=== PATIENT | female | born 1970 | race Caucasian/White ===

== ENCOUNTER 2020-08-20 18:51 | Inpatient (IN) | payer OTHER ==
[~2020-08-20 18:51] MED LIST: ADMELOG100 UNIT/1 SC; ASPIRIN EC81 MG PO; BACTRIM DS TAB1 EACH PO; BASAGLAR K100 UNIT/1 SC; CEFDINIR300 MG PO; MOTRIN600 MG PO; NEURONTIN300 MG PO; ONDANSETRON HCL4 MG PO; OXY-IR 5MG5 MG PO; PHENERGAN12.5 M1 PO; PHENERGAN25 M1 PO; POTASSIUM CHLO10 ME1 PO; PROMETHEGA12.5 MG/SU PR; PROTONIX 40MG T40 MG PO; PROZAC40 MG PO; REGLAN5 MG PO; ZOFRAN4 MG SL
[2020-08-20 20:59] LABS: BUN/CREAT RATIO (CALC) 40.3 RATIO; CREATININE 1.96 mg/dL (0.51-0.95); POTASSIUM 2.7 mmol/L (3.5-5.1)
[2020-08-20 21:13] LABS: BASOPHIL 0.1 % (0-2); EOSINOPHIL 0.7 % (0-5); HGB 16.1 g/dl (12.5-16.0); MCH 30.6 pg (25.0-31.0); MCHC 36.6 g/dL (32.0-36.0); MCV 83.7 fL (78.0-100.0); MONOCYTE 9.9 % (0-12); MPV 10.7 fL (6.0-9.5); NEUTROPHIL 69.9 % (41-80); NRBC 0; PLT 451 K/uL (150-400); RBC 5.26 M/uL (4.20-5.40); RDW 13.3 % (11.5-14.0); WBC 13.6 K/uL (4.0-10.5)
[2020-08-20 22:00] LABS: CORONAVIRUS 2019 SARS-COV-2 NEGATIVE (NEGATIVE); INFLUENZA A NAA NEGATIVE (NEGATIVE)
[2020-08-20] MEDS ORDERED: PREDNISONE 20MG20 MG PO (22:45)
[2020-08-20] MEDS ORDERED: CYCLOBENZAPRINE10 MG PO (22:45)
[2020-08-21] MEDS ORDERED: LEVOTHYROXINE PO (00:55)
[2020-08-21] MEDS ORDERED: KLONOPIN2 MG PO (00:57)
[2020-08-21 02:25] LABS: BILIRUBIN 2+ mg/dL (NEGATIVE); BLOOD 3+ Ery/uL (NEGATIVE); CLARITY CLEAR (CLEAR); COLOR YELLOW (YELLOW); GLUCOSE (U) 1+ mg/dL (NORMAL); LEUKOCYTES NEGATIVE Leu/uL (NEGATIVE); NITRITE NEGATIVE (NEGATIVE); PROTEIN 1+ mg/dL (NEGATIVE); SPECIFIC GRAVITY 1.025 (1.001-1.030); UROBILINOGEN 0.2 mg/dL (0.2-1.0); pH 5.5 (5.0-9.0)
[2020-08-21 02:30] LABS: AMPHETAMINES NEGATIVE (NEGATIVE); BARBITURATES NEGATIVE (NEGATIVE); ECSTASY (MDMA) NEGATIVE (NEGATIVE); MARIJUANA (THC) NEGATIVE (NEGATIVE); METHADONE NEGATIVE (NEGATIVE); OPIATES POSITIVE (NEGATIVE); OXYCODONE NEGATIVE (NEGATIVE)
[2020-08-21 02:33] LABS: BACTERIA TRACE
[2020-08-21 05:41] LABS: BASOPHIL 0.2 % (0-2); EOSINOPHIL 1.1 % (0-5); HCT 37.4 % (37.0-47.0); HGB 13.2 g/dl (12.5-16.0); LYMPHOCYTE 33.9 % (15-48); MCH 30.3 pg (25.0-31.0); MCHC 35.3 g/dL (32.0-36.0); MCV 85.8 fL (78.0-100.0); MONOCYTE 9.9 % (0-12); MPV 9.8 fL (6.0-9.5); NEUTROPHIL 54.5 % (41-80); NRBC 0; PLT 325 K/uL (150-400); RBC 4.36 M/uL (4.20-5.40); RDW 13.5 % (11.5-14.0); WBC 8.3 K/uL (4.0-10.5)
[2020-08-21 06:01] LABS: BUN/CREAT RATIO (CALC) 42.5 RATIO; CREATININE 1.67 mg/dL (0.51-0.95); POTASSIUM 2.7 mmol/L (3.5-5.1)
[2020-08-22 04:21] LABS: BASOPHIL 0.5 % (0-2); HCT 32.7 % (37.0-47.0); HGB 11.1 g/dl (12.5-16.0); MCH 30.7 pg (25.0-31.0); MCHC 33.9 g/dL (32.0-36.0); MCV 90.3 fL (78.0-100.0); MONOCYTE 9.3 % (0-12); MPV 9.2 fL (6.0-9.5); NEUTROPHIL 54.9 % (41-80); NRBC 0; PLT 245 K/uL (150-400); RBC 3.62 M/uL (4.20-5.40); WBC 5.9 K/uL (4.0-10.5)
[2020-08-22 04:37] LABS: CREATININE 1.06 mg/dL (0.51-0.95); MAGNESIUM 2.7 mg/dL (1.8-2.4)
[2020-08-22] MEDS ORDERED: PROMETHEGA12.5 MG/SU PR (10:38)
== END 2020-08-22 14:35 | disposition home or self-care (01) | DRG 638 ==
LOC: FER 18:51 → FMS 23:09
PROVIDERS: Nurse Practitioner; Nurse Practitioner Family; ADMIT Internal Medicine
PROC: 02HV33Z Insertion of Infusion Device into Superior Vena Cava, Percutaneous Approach (ICD-10-PCS; principal; 2020-08-20)
PROC: 3E02340 Introduction of Influenza Vaccine into Muscle, Percutaneous Approach (ICD-10-PCS; 2020-08-22)
DX: E11.65 Type 2 diabetes mellitus with hyperglycemia (principal); N17.9 Acute kidney failure, unspecified; E87.1 Hypo-osmolality and hyponatremia; K52.9 Noninfective gastroenteritis and colitis, unspecified; E86.0 Dehydration; Z20.822 Contact with and (suspected) exposure to COVID-19; E87.6 Hypokalemia; M19.90 Unspecified osteoarthritis, unspecified site; I10 Essential (primary) hypertension; G89.4 Chronic pain syndrome; F32.9 Major depressive disorder, single episode, unspecified; F41.1 Generalized anxiety disorder; E11.40 Type 2 diabetes mellitus with diabetic neuropathy, unspecified; F17.210 Nicotine dependence, cigarettes, uncomplicated; Z98.51 Tubal ligation status; Z79.4 Long term (current) use of insulin; Z79.82 Long term (current) use of aspirin; Z23 Encounter for immunization
CPT/HCPCS: 36415; 80048; 80305; 81001; 83036; 83690; 83735; 85025; 90686; 90732; 96365; 96375; 96376; G0008; G0009; J0780; J1644; J2270; J2405; J3480; J7030; U0002

== ENCOUNTER 2020-10-18 06:31 | Emergency (ER) | payer OTHER ==
[~2020-10-18 06:31] MED LIST changes: +CYCLOBENZAPRINE10 MG PO; +KLONOPIN2 MG PO; +LEVOTHYROXINE PO; +PREDNISONE 20MG20 MG PO
[2020-10-18 07:23] LABS: BASOPHIL 0.4 % (0-2); EOSINOPHIL 0.1 % (0-5); HCT 36.4 % (37.0-47.0); HGB 11.2 g/dl (12.5-16.0); LYMPHOCYTE 6.5 % (15-48); MCH 29.8 pg (25.0-31.0); MCHC 30.8 g/dL (32.0-36.0); MCV 96.8 fL (78.0-100.0); MONOCYTE 8.7 % (0-12); NEUTROPHIL 82.7 % (41-80); NRBC 0; PLT 418 K/uL (150-400); RBC 3.76 M/uL (4.20-5.40); RDW 13.2 % (11.5-14.0)
[2020-10-18 07:39] LABS: WBC 33.1 K/uL (4.0-10.5)
[2020-10-18 07:44] LABS: ALKALINE PHOSHATASE 111 U/L (46-116); ALT 18 U/L (14-59); AST 22 U/L (15-37); BILIRUBIN - TOTAL 0.9 mg/dL (0.2-1.0); BUN 25 mg/dL (7-18); BUN/CREAT RATIO (CALC) 22.7 RATIO; CHLORIDE 84 mmol/L (98-107); CO2 (BICARBONATE) 6 mmol/L (21-32); GLOBULIN (CALCULATION) 3.5 g/dL; POTASSIUM 5.7 mmol/L (3.5-5.1); TOTAL PROTEIN 7.5 g/dL (6.4-8.2)
[2020-10-18 07:45] LABS: GLUCOSE >750 mg/dL (74-106)
[2020-10-18 07:48] LABS: LACTIC ACID 9.2 mmol/L (0.4-1.9)
[2020-10-18 08:55] LABS: BILIRUBIN NEGATIVE (NEGATIVE); BLOOD TRACE-INTACT Ery/uL (NEGATIVE); CLARITY CLEAR (CLEAR); COLOR YELLOW (YELLOW); GLUCOSE (U) 3+ mg/dL (NORMAL); LEUKOCYTES NEGATIVE Leu/uL (NEGATIVE); NITRITE NEGATIVE (NEGATIVE); PROTEIN NEGATIVE (NEGATIVE); SPECIFIC GRAVITY 1.015 (1.001-1.030); UROBILINOGEN 0.2 mg/dL (0.2-1.0); pH 5.5 (5.0-9.0)
[2020-10-18 08:57] LABS: AMPHETAMINES NEGATIVE (NEGATIVE); BARBITURATES NEGATIVE (NEGATIVE); ECSTASY (MDMA) NEGATIVE (NEGATIVE); MARIJUANA (THC) NEGATIVE (NEGATIVE); METHADONE NEGATIVE (NEGATIVE); OPIATES NEGATIVE (NEGATIVE); OXYCODONE NEGATIVE (NEGATIVE)
== END 2020-10-18 10:55 | disposition other institution (70) ==
LOC: FER 06:31
PROVIDERS: Emergency Medicine; Emergency Medicine Emergency Medical Services
DX: A41.9 Sepsis, unspecified organism (principal); E11.10 Type 2 diabetes mellitus with ketoacidosis without coma; I63.9 Cerebral infarction, unspecified; R29.704 NIHSS score 4; G93.9 Disorder of brain, unspecified; I10 Essential (primary) hypertension; Z79.4 Long term (current) use of insulin; Z98.1 Arthrodesis status; Z79.82 Long term (current) use of aspirin; Z79.899 Other long term (current) drug therapy; Z20.822 Contact with and (suspected) exposure to COVID-19
CPT/HCPCS: 36415; 36600; 70450; 71045; 72125; 80053; 80305; 81001; 82009; 82803; 83605; 84145; 84484; 85025; 87040; 87088; 93005; 96365; 96368; 96372; 96375; J1956; J2405; J2543; J2550; J7030; U0002